=== PATIENT | male | born 1960 | race Caucasian/White ===

== ENCOUNTER → 2016-12-24 | Outpatient (CLI) | payer BC | END | disposition home or self-care (01) | LOC: GMAB 10:19 | PROVIDERS: ATTEND Family Medicine | DX: D68.59 Other primary thrombophilia (principal) ==

== ENCOUNTER → 2017-01-22 | Outpatient (CLI) | payer BC | END | disposition home or self-care (01) | LOC: GMAB 12:17 | PROVIDERS: ATTEND Family Medicine | DX: Z00.01 Encounter for general adult medical examination with abnormal findings (principal) ==

== ENCOUNTER → 2017-05-27 | Outpatient (CLI) | payer BC | END | disposition home or self-care (01) | LOC: GMAB 10:46 | PROVIDERS: ATTEND Family Medicine | DX: D64.9 Anemia, unspecified (principal) ==

== ENCOUNTER 2017-11-18 05:33 | Day surgery (SDC) | payer BC ==
[2017-11-18] MEDS ORDERED: MIDAZOLAM INJ 2 MG/2 ML VIAL ONE (07:33)
[2017-11-18] MEDS ORDERED: fentaNYL CITRATE INJ 50 MCG/ML AMP ONE (07:33)
[2017-11-18] MEDS: LACTATED RINGERS 1,000 ML ONE (07:45)
--- NOTE | 2017-11-18 08:52 | OP ---
DATE OF PROCEDURE: 11/18/17 PREPROCEDURE DIAGNOSIS: 1. Screening for colorectal cancer. POSTPROCEDURE DIAGNOSIS: 1. Large internal hemorrhoids. 2. Diverticulosis. PROCEDURE: 1. Colonoscopy. SURGEON: Zen Campbell MD SEDATION: The patient was sedated via IV propofol by the Anesthesia Department. COMPLICATIONS: No immediate complications. CONSENT: Prior to the procedure, risks, benefits and alternatives to the therapy were discussed with the patient. The risks included bleeding, infection , perforation and . The patient agreed to the procedure and signed a consent. PREPROCEDURE ANESTHESIA ASSESSMENT: An examination revealed no contraindication to sedation. Airway examination demonstrated a Mallampati class type 2. ASA grade assessment type 2. Throughout the procedure, the patient's blood pressure, pulse and oxygen saturation were monitored continuously. PROCEDURE: The patient was placed in the left lateral decubitus position and a rectal examination was performed. The rectal examination was within normal limits. The Olympus colonoscope was passed in the anus, rectum, traversing the colon to the level of the cecum as identified by the appendiceal orifice. The scope was retracted and the mucosa was visualized. The entirety of the exam was performed with direct visualization. Retroflexion was performed in the rectum. Preparation quality was good. The withdrawal time was greater than 6 minutes. The patient tolerated the procedure well. FINDINGS: 1. Large internal hemorrhoids. 2. Mild to moderate sigmoid diverticulosis. RECOMMENDATION: 1. Return home. 2. Resume diet and previous medications. 3. Yearly fecal occult blood testing/Cologuard starting three years from present examination. 4. Repeat colonoscopy in 10 years. 6. Return to referring physician as previously scheduled. 7. Return to my office (Dr. Garrett) p.r.n. in case of any GI symptomatology. #[id number] [facility]
[2017-11-18] MEDS ORDERED: PROPOFOL 200 MG/20 ML VIAL IV ONE (10:00)
[2017-11-18] MEDS ORDERED: LIDOCAINE 1% 10 ML VIAL INJ ONE (10:00)
[2017-11-18 11:17] VITALS: BP 105/64; TEMP 97.3; O2SAT 99
== END 2017-11-18 09:20 | disposition home or self-care (01) ==
LOC: AMB 05:33
PROVIDERS: ATTEND Internal Medicine Gastroenterology
DX: Z12.11 Encounter for screening for malignant neoplasm of colon (principal); K57.30 Diverticulosis of large intestine without perforation or abscess without bleeding; K64.8 Other hemorrhoids; I10 Essential (primary) hypertension; K21.9 Gastro-esophageal reflux disease without esophagitis; Z88.0 Allergy status to penicillin; Z79.899 Other long term (current) drug therapy
CPT/HCPCS: 00812; 45378; J2250; J3010; J3490; J7120

== ENCOUNTER → 2017-11-25 | Outpatient (CLI) | payer BC | LOC: GMAB 11:38 | PROVIDERS: ATTEND Family Medicine | DX: D64.9 Anemia, unspecified (principal) ==

== ENCOUNTER → 2018-03-24 | Outpatient (CLI) | payer BC | LOC: GMAB 11:15 | PROVIDERS: ATTEND Family Medicine | DX: Z00.00 Encounter for general adult medical examination without abnormal findings (principal); D64.9 Anemia, unspecified ==

== ENCOUNTER → 2018-04-08 | Outpatient (CLI) | payer BC | LOC: GMAB 11:22 | PROVIDERS: ATTEND Family Medicine | DX: D64.9 Anemia, unspecified (principal) ==

== ENCOUNTER → 2018-07-08 | Outpatient (CLI) | payer OTHER | LOC: GMAE 10:28 | PROVIDERS: ATTEND Family Medicine | DX: D64.9 Anemia, unspecified (principal) ==

== ENCOUNTER → 2018-12-08 | Outpatient (CLI) | payer OTHER | LOC: GMAE 10:52 | PROVIDERS: ATTEND Family Medicine | DX: D64.9 Anemia, unspecified (principal) ==

== ENCOUNTER → 2019-03-24 | Outpatient (CLI) | payer OTHER | LOC: GMAE 10:36 | PROVIDERS: ATTEND Family Medicine | DX: I10 Essential (primary) hypertension (principal); E13.9 Other specified diabetes mellitus without complications; Z12.5 Encounter for screening for malignant neoplasm of prostate | CPT/HCPCS: 84443; G0103 ==

== ENCOUNTER → 2019-06-07 | Outpatient (CLI) | payer OTHER | LOC: GMAE 12:16 | PROVIDERS: ATTEND Family Medicine | DX: D64.9 Anemia, unspecified (principal) ==

== ENCOUNTER → 2019-07-26 | Outpatient (CLI) | payer MEDICARE | LOC: GMAE 09:58 | PROVIDERS: ATTEND Family Medicine | DX: D69.6 Thrombocytopenia, unspecified (principal); E53.1 Pyridoxine deficiency; E53.8 Deficiency of other specified B group vitamins; E55.9 Vitamin D deficiency, unspecified; R53.83 Other fatigue; E06.3 Autoimmune thyroiditis ==

== ENCOUNTER → 2019-08-24 | Outpatient (CLI) | payer MEDICARE ==
--- NOTE | 2019-08-24 09:59 | US ---
EXAM DESCRIPTION: Abdomen,Limited CLINICAL HISTORY: LEFT UPPER QUADRANT PAIN COMPARISON: None Available. TECHNIQUE: Right upper quadrant ultrasound FINDINGS: Pancreas: Visualized portions of the pancreas are unremarkable. Bowel gas obscures some areas. Aorta/inferior vena cava: No aortic aneurysm. Normal inferior vena cava. Liver: No intrahepatic bile duct dilatation. Small hypoechoic lesions in the liver are seen in the right lobe measuring 1.6 cm and 1 cm. Differential considerations would include multifocal hepatoma or metastatic disease. Neither of the hypoechoic lesions is typical of a hemangioma. However there is another echogenic lesion in the right lobe posteriorly which measures 3.4 cm and the appearance is consistent with benign cavernous hemangioma. These liver findings could be further evaluated with MRI of the abdomen without and with contrast. No liver surface irregularity. Normal appearance of the portal vein and hepatic veins. Gallbladder: Gallbladder appears prominent in size with low level internal echoes suggesting sludge. No shadowing stones within the gallbladder lumen. Gallbladder wall thickness is prominent measuring 3.7 mm. Common bile duct: Normal caliber measuring 4.0 mm. Right kidney: Renal length is 10.5 cm. Increased cortical echogenicity. Cortical thickness is normal. No hydronephrosis is seen. No renal mass or shadowing calculus. Small cyst at the lower pole of the right kidney measures 1.7 cm. IMPRESSION: Multiple liver lesions. MRI is recommended for further evaluation. Small right renal cyst. Electronically signed by: Jarrod Mendoza MD 08/24/2019 9:58 AM [employer]
== END ==
LOC: RAD 09:02
PROVIDERS: ATTEND Family Medicine
DX: R10.12 Left upper quadrant pain (principal); N28.1 Cyst of kidney, acquired

== ENCOUNTER → 2019-09-16 | Outpatient (CLI) | payer MEDICARE ==
--- NOTE | 2019-09-19 08:26 | MRI ---
MR ABDOMEN WITHOUT THEN WITH IV CONTRAST HISTORY: 59 years Male ABNORMAL SONO COMPARISON: Abdominal ultrasound dated August 24, 2019. TECHNIQUE: Multiplanar multisequence imaging of the abdomen was obtained before and after the intravenous administration of 20 mL Dotarem. FINDINGS: Numerous mildly T2 hyperintense nodules/masses are scattered throughout the liver involving all lobes. The largest mass measures approximately 4.0 cm in the left hepatic lobe, segment IVb. The visible masses demonstrate diffusion restriction on DWI, with the larger masses demonstrating notable arterial enhancement with washout on venous and delayed imaging. Findings are consistent with probable multifocal hepatocellular carcinoma. No overt cirrhotic changes are identified within the liver. Liver demonstrates grossly normal size. Liver contour is smooth within the limits of MRI. Portal vein demonstrates normal postcontrast enhancement throughout. No splenomegaly or varices are identified. Gallbladder and biliary tree are within normal limits. Pancreas is unremarkable. Multiple simple appearing cysts are present within bilateral kidneys. Kidneys are otherwise unremarkable. Adrenal glands unremarkable. Included bowel and peritoneal cavity demonstrate no focal abnormality. Included strandy soft tissues demonstrate no acute process. There is a 1.3 cm T2 hyperintense lesion in the T12 vertebral body with associated serpiginous vessels, suggestive of an intraosseous hemangioma. Included osseous structures otherwise demonstrate grossly normal marrow signal. The vasculature demonstrates normal flow-related signal changes. IMPRESSION: Numerous liver lesions with signal characteristics favoring probable hepatocellular carcinoma. No overt findings of hepatic cirrhosis. Occasionally metastatic disease may mimic this appearance. Image guided biopsy is recommended for confirmation, ultrasound versus CT. Electronically signed by: Vasu Leonard MD 09/19/2019 8:25 AM [facility]
== END ==
LOC: MRI 07:03
PROVIDERS: ATTEND Family Medicine
DX: K76.9 Liver disease, unspecified (principal)

== ENCOUNTER → 2019-09-19 | Outpatient (CLI) | payer MEDICARE | LOC: GMAE 16:55 | PROVIDERS: ATTEND Family Medicine | DX: R93.2 Abnormal findings on diagnostic imaging of liver and biliary tract (principal); K76.89 Other specified diseases of liver ==

== ENCOUNTER → 2019-09-21 | Outpatient (CLI) | payer MEDICARE ==
--- NOTE | 2019-09-21 15:17 | CT ---
EXAM DESCRIPTION: Chest w/o Contrast CLINICAL HISTORY: ABDOMINAL FINDINGS ON DIAGNOSTIC IMAGING OF LIVER AND BILI TRAC COMPARISON: MRI of September 16, 2019, ultrasound August 24, 2019 TECHNIQUE: Chest CT was performed without IV contrast. This exam was performed according to our departmental dose-optimization program, which includes automated exposure control, adjustment of the mA and/or kV according to patient size and/or use of iterative reconstruction technique. FINDINGS: The thyroid and thoracic inlet are unremarkable. No thoracic aortic aneurysm. No esophageal wall thickening. No pleural or pericardial effusion. Limited sensitivity for detection of adenopathy due to lack of IV contrast, no mediastinal or hilar adenopathy is seen. The central airways are clear. Mild scarring versus atelectasis in the lung apices. No airspace consolidation or lung mass. 3 mm noncalcified nodule in the left lung apex (series 7 image 8), nonspecific. No additional lung nodule. Round 3.9 cm intermediate density liver lesion just anterior to the IVC better evaluated on recent MRI. Smaller liver lesions seen on the prior exam are less well visualized on this exam. Included portions of the upper abdomen are otherwise unremarkable for noncontrast technique. Tiny sclerotic lesion anteriorly in the left scapular body likely representing a bone island. A probable small hemangioma in the T12 body is only faintly visualized on this exam. No additional lytic or sclerotic bone lesion. IMPRESSION: 3 mm noncalcified left apical lung nodule, nonspecific but likely benign. If the patient has risk factors for neoplasm, follow-up CT in 12 months should be considered. If stable at 12 months, no further follow-up imaging. No additional evidence of primary or metastatic neoplasm in the chest. Electronically signed by: Alfonso Bates MD 09/21/2019 3:15 PM [facility]
== END ==
LOC: CT 12:48
PROVIDERS: ATTEND Family Medicine
DX: R93.2 Abnormal findings on diagnostic imaging of liver and biliary tract (principal); K76.89 Other specified diseases of liver; R91.1 Solitary pulmonary nodule

== ENCOUNTER → 2019-09-27 | Outpatient (CLI) | payer MEDICARE ==
--- NOTE | 2019-09-28 09:07 | NM ---
EXAM DESCRIPTION: Bone Scan, Whole Body: Nuclear Medicine CLINICAL HISTORY: 59 years Male ABNORMAL FINDINGS ON DIAGNOSTIC IMAGING OF LIVER AND BILIARY TRAC COMPARISON: CT scan chest September 21. MRI abdomen with contrast September 16 TECHNIQUE: Patient injected with 36.6 mCi of technetium 99M MDP IV. Delayed gamma camera images of whole body from various planes were obtained 3 hr after injection. FINDINGS: Increased activity in the left patella, medial right ankle, bilateral wrists, bilateral glenohumeral and AC joints most likely due to degeneration. Also activity in the vicinity of the posterior C6 and C7 vertebra most likely degenerative. No abnormal uptake or activity in the long bones flat bones or skull. Normal soft tissue activity in the sinuses, urinary bladder, and kidneys. IMPRESSION: No activity or uptake on total body radionuclide bone scan consistent with blastic metastatic disease. Degenerative activity in the cervical spine and other joints as described. Electronically signed by: Nelson Melendez MD 09/28/2019 9:06 AM [employer]
== END ==
LOC: NM 09:00
PROVIDERS: ATTEND Family Medicine
DX: R93.2 Abnormal findings on diagnostic imaging of liver and biliary tract (principal)

== ENCOUNTER → 2019-11-16 | Outpatient (CLI) | payer MEDICARE | LOC: LAB.O 08:04 | PROVIDERS: ATTEND Surgery | DX: G35 Multiple sclerosis (principal); E78.5 Hyperlipidemia, unspecified; I10 Essential (primary) hypertension; K76.89 Other specified diseases of liver ==